=== PATIENT | female | born 1940 | race Caucasian/White ===

== ENCOUNTER 2019-10-07 16:25 | Inpatient (IN) | payer MEDICARE, BC, SELFPAY ==
[2019-10-07] VITALS (7 sets, daily range): BP systolic 98–115; BP diastolic 55–77; PULSE 54–69; RESP 14–20; TEMP 36.7–36.9; O2SAT 89–100; BMI 29.7; BMI 28.9
--- NOTE | 2019-10-07 16:38 | ECG_ITS ---
APPROVED REPORT Exam: Resting ECG HR:68 bpm ECG Measurements Heart Rate 68 AXES NH 182 P 52 QRSd 98 QRS -21 QT 446 T 108 QTc 474 <Conclusion> Normal sinus rhythm Possible Left atrial enlargement Nonspecific T wave abnormality Prolonged QT Abnormal ECG Electronically signed by : Arash Green, 10/09/2019 20:02:17
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
--- NOTE | 2019-10-07 16:50 | CT_ITS ---
PROCEDURE: CT HEAD/BRAIN WO CON CLINICAL INDICATION: altered mental status There is generalized atrophy with hypoattenuation of the periventricular white matter consistent with microangiopathic changes. COMPARISON: No exams were available for comparison TECHNIQUE: Axial images obtained. All CT scans at the facility use one or more dose reduction, viz: automated exposure control, ma/kV adjustment per patient size (including targeted exams where dose is matched to indication, i.e. head), or iterative reconstruction technique. FINDINGS: No midline shift, mass effect, intracranial hemorrhage, hydrocephalus, or extra-axial fluid collection is evident. There is generalized atrophy with hypoattenuation of the periventricular white matter consistent with microangiopathic changes. The calvarium has an unremarkable appearance. No mastoid effusion. 1.4 cm retention cyst left maxillary sinus IMPRESSION: No acute intracranial finding Dictated by: Solitario Soares MD 10/08/2019 08:18 Electronically signed by Solitario Soares MD in [place] 10/08/2019 08:18
--- NOTE | 2019-10-07 16:51 | XR_ITS ---
PROCEDURE: XR CHEST PORTABLE CLINICAL INDICATION: low O2 sat COMPARISON: CT ANGIO CHEST from 10/07/2019 FINDINGS: There is cardiomegaly without failure. There are small bilateral pleural effusions with consolidation in the left lower lobe. Patchy infiltrate is also present in the right midlung. Other findings:No acute bony findings. IMPRESSION: Cardiomegaly with left lower lobe pneumonia, small bilateral effusions and patchy infiltrate in the right midlung Dictated by: Solitario Soares MD 10/08/2019 00:33 Electronically signed by Solitario Soares MD in [place] 10/08/2019 00:33
[2019-10-07 16:52] LABS: Basophils # 0.1 K/mm3 (0-0.2); Basophils % 0.3 % (0.1-2.0); Chloride 100 mmol/L (98-107); Eosinophils # 0.4 K/mm3 (0.0-0.4); Eosinophils % 2.5 % (0.1-12.0); Hematocrit 34.1 % (37.0-47.0); Hemoglobin 10.9 g/dL (12.2-16.2); Lymphocytes # 2.1 K/mm3 (0.7-4.5); Lymphocytes % 14.1 % (10-50); Mean Corpuscular Hemoglobin 28.6 pg (27.0-31.2); Mean Corpuscular Volume 89.1 fl (81-99); Mean Platelet Volume 7.8 fl (7.4-10.4); Monocytes % 6.5 % (1.7-9.3); Neutrophils # 11.2 K/mm3 (1.8-7.8); Neutrophils % 76.5 % (37.0-80.0); Platelet Count 458 K/mm3 (142-424); Red Blood Count 3.82 M/mm3 (4.20-5.40); Red Cell Distribution Width 15.3 % (11.5-17.5); Sodium 133 mmol/L (136-145); White Blood Count 14.7 K/mm3 (4.8-10.8)
[2019-10-07 16:53] LABS: Potassium 3.7 mmoL/L (3.5-5.1)
[2019-10-07 16:55] LABS: Alanine Aminotransferase 22 U/L (12-78); Albumin Level 2.5 g/dl (3.5-5.0); Albumin/Globulin Ratio 0.7 (1.1-1.8); Alkaline Phosphatase 108 U/L (38-126); Anion Gap 14.7 mEq/L (5-15); Aspartate Amino Transferase 39 U/L (14-36); Bilirubin,Total 0.4 mg/dl (0.2-1.3); Blood Urea Nitrogen 36 mg/dl (7-17); Carbon Dioxide 22 mmol/L (22.0-30.0); Creatinine Clearance Estimated 36 mL/min (50-200); Estimated Glomerular Filt Rate 27 ml/min (>60); GFR (African American) 33 ML/MIN (>60); Globulin 3.7 g/dL (1.3-3.2); Total Protein,Serum 6.2 g/dl (6.3-8.2)
--- NOTE | 2019-10-07 16:55 | CT_ITS ---
PROCEDURE: CT ANGIO CHEST CLINCIAL INDICATION: hypoxia, r/o PE COMPARISON: No exams were available for comparison TECHNIQUE: IV Contrast: 70ML OPTIRAY 350 Axial images obtained with sagittal and coronal reformats. All CT scans at the facility use one or more dose reduction, viz: automated exposure control, ma/kV adjustment per patient size (including targeted exams where dose is matched to indication, i.e. head), or iterative reconstruction technique. FINDINGS: Exam is performed without and with contrast with CT a protocol. Moderate degree of acute bilateral pulmonary emboli noted more extensive on the left within the bifurcation of the left main pulmonary artery extending into the upper lower lobe branches. Pulmonary embolus noted in the lower lobe branches on the right. There is cardiomegaly. There is some reflux of contrast into the inferior vena cava which is slightly enlarged. No bowing of the interventricular septum. No evidence of aortic aneurysm or dissection. Patchy ground-glass density noted in both upper lobes. Consolidation is present in both lung bases posteriorly left more extensive than right there are medium bilateral pleural effusions with bibasilar atelectatic changes. There is some minimal thickening of the pericardium. IMPRESSION: 1. Bilateral pulmonary emboli. The IVC is enlarged with mild reflux of contrast into the IVC which may be seen with some mild right heart strain. 2. Moderate bilateral pleural effusions with bilateral lower lobe consolidation/volume loss 3. Cardiomegaly 4. Patchy ground-glass infiltrates in both upper lobes nonspecific and could be seen with edema, viral or atypical pneumonia among other etiologies. Dictated by: Solitario Soares MD 10/08/2019 09:24 Electronically signed by Solitario Soares MD in [place] 10/08/2019 09:24
[2019-10-07 16:56] LABS: Calcium 8.7 mg/dl (8.4-10.2); Glucose 105 mg/dl (74-100)
--- NOTE | 2019-10-07 16:58 | PC.NURSE ---
pt to rad
[2019-10-07 17:07] LABS: Troponin I 0.03 ng/ml (0.00-0.034)
[2019-10-07 17:12] LABS: NT Pro Brain Natriuretic Pep. 8210 pg/mL (0-450)
[2019-10-07 17:31] LABS: Coronavirus 19 IgG Antibody Negative (Negative); Coronavirus 19 IgM Antibody Negative (Negative)
[2019-10-07 18:18] LABS: Microscopic, Urine URINE MICROSCOPIC (MICROSCOPIC)
[2019-10-07 18:24] LABS: Appearance,Urine CLOUDY (Clear); Bilirubin,Urine Negative (Negative); Blood, Urine 2+ (Negative); Color,Urine YELLOW (Yellow); Glucose,Urine (UA) Negative (Negative); Ketones,Urine Negative (Negative); Leukocyte Esterase,Urine 2+ (Negative); Nitrate,Urine Negative (Negative); Protein,Urine 1+ (Negative); Specific Gravity, Urine 1.025 (1.005-1.030); Urobilinogen,Urine 0.2 EU/dl (0.2)
[2019-10-07 18:26] LABS: Lactic Acid 1.3 mmol/L (0.7-2.1)
--- NOTE | 2019-10-07 18:30 | PC.NURSE ---
Lab here to do COVID swab. Arabella states that this swab will take longer than usual due to there already being swabs running at this time.
[2019-10-07 18:38] LABS: Adenovirus,PCR Not Detected (NotDetected); Bordetella Pertussis Not Detected (NotDetected); Chlamydophila Pneumoniae, PCR Not Detected (NotDetected); Coronavirus 19, PCR Not Detected (NotDetected); Coronavirus 229E Not Detected (NotDetected); Coronavirus NL63 Not Detected (NotDetected); Coronavirus OC43 Not Detected (NotDetected); Coronovirus HKU1,PCR Not Detected (NotDetected); Human Metapneumovirus Not Detected (NotDetected); Influenza A, PCR Not Detected (NotDetected); Influenza AH1, 2009 Not Detected (NotDetected); Influenza AH1, PCR Not Detected (NotDetected); Influenza AH3,PCR Not Detected (NotDetected); Influenza B, PCR Not Detected (NotDetected); Mycoplasma Pneumoniae, PCR Not Detected (NotDected); Parainfluenza 1, PCR Not Detected (NotDetected); Parainfluenza 2, PCR Not Detected (NotDetected); Parainfluenza 3, PCR Not Detected (NotDetected); Parainfluenza 4, PCR Not Detected (NotDetected); Respiratory Syncytial Virus Not Detected (NotDetected); Rhinovirus/Enterovirus Not Detected (NotDetected)
[2019-10-07 19:08] LABS: Activated Partial Thrombo Time 23.6 seconds (23.6-34.0)
[2019-10-07 19:15] LABS: Bacteria,Urine 3+ /lpf; WBC,Urine 20-50 #/hpf (0-3)
--- NOTE | 2019-10-07 19:26 | PC.NURSE ---
covid test running at this time. Must be done before pt can go upstairs.
--- NOTE | 2019-10-07 20:07 | PC.NURSE ---
per day shift cefepime and levaquin will need to be given by 2nd floor nurse. vanc and heparin running at this time
--- NOTE | 2019-10-07 20:40 | PC.NURSE ---
report given to Rosalba Michaels RN nurse informed that pt would still need cefepime and levaquin after vanc is complete.
--- NOTE | 2019-10-07 20:50 | PC.NURSE ---
PT ARRIVED TO THE FLOOR VIA STRETCHER FROM ED AT 2047.
--- NOTE | 2019-10-07 22:56 | PC.NURSE ---
called tania pharm digital solutions architect, to verify heparin consult on may. she stated she had already spoken with the triage register nurse prior to admission to this unit. ordered a PTT lab draw for 2300 this evening and another PTT lab draw again at 0600 in the am.
[2019-10-07 23:38] LABS: Activated Partial Thrombo Time 86.5 seconds (23.6-34.0)
--- NOTE | 2019-10-07 23:45 | PC.NURSE ---
spoke with tania, pharm telecommunications professional, about heparin gtt. PTT draw noted at 86.5. she ordered to adjust dose from 26 ml/hr to 24 ml/hr.
[2019-10-08] VITALS (9 sets, daily range): BP systolic 90–125; BP diastolic 54–71; PULSE 56–78; RESP 16–20; TEMP 36.4–37.1; O2SAT 90–96
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
[2019-10-08 06:15] LABS: ABG HCO3 21.9 mmhg (22.0-26.0); ABG PCO2 39.5 mmhg (35.0-45.0); ABG PH 7.36 mmol/L (7.35-7.45); ABG PO2 93.3 mmhg (80-100)
[2019-10-08 06:16] LABS: ABG Base Excess -3.6 mmol/L (-2.4-2.3); ABG Oxygen Saturation 97 % (90-100); ABG TCO2 23.1 mmhg (23-27); Allen's Test ACCEPTABLE; Oxygen 2.5 LPM %; Source R RADIAL
--- NOTE | 2019-10-08 07:00 | CA_ITS ---
APPROVED REPORT Bilateral Lower Extremity Venous Study for Chemical Machine Tender: MICHAEL Indications Lower Extremity Edema: Bilateral Lower Extremity Swelling: Bilateral PE, r/o dvt Risk Factors Obesity Past History Pulmonary Embolism Vein Imaging CFV (R): compressive, spontaneous, phasic, augmentation SFJ (R): compressive, spontaneous, phasic, augmentation FEM (R): compressive, spontaneous, phasic, augmentation POP (R): compressive, spontaneous, phasic, augmentation DFV (R): Compressible PTV (R): Compressible GSV (R): compressive, spontaneous, phasic, augmentation Peroneals (R):Not Visualized GAS (R): Compressible CFV (L): Non-Compressible SFJ (L): Non-Compressible FEM (L): Compressible POP (L): Compressible PTV (L): Compressible GSV (L): Partially Compressible Peroneals (L):Not Visualized Findings No evidence of DVT in right lower leg. Acute DVT is visualized in the common femoral vein of the left lower extremity and the greater saphaneous vein of the left lower leg. Reported to attending nurse. Technically difficult study bilateral lower edema making visualization difficult. Conclusion No evidence of DVT in right lower leg. Acute DVT is visualized in the common femoral vein of the left lower extremity and the greater saphaneous vein of the left lower leg. Electronically signed by : Solitario Soares MD 10/08/2019 18:20:40
--- NOTE | 2019-10-08 07:22 | P.CONPHA_ITS ---
[facility] Pharmacy VTE Monitoring - Patient Demographics Admission date: 10/07/19 Report Date: 10/08/19 Time: :22 Allergies/Adverse Reactions: Patient Allergies acetaminophen [From Tylenol] Allergy (Verified 10/07/19 16:40) aspirin Allergy (Verified 10/07/19 16:40) Sulfa (Sulfonamide Antibiotics) Allergy (Verified 10/07/19 16:40) Height: 1.7 m Weight: 83.518 kg Patient Problems: Current Active Problems Bilateral pulmonary embolism (Acute) Respiratory failure with hypoxia (Acute) Healthcare-associated pneumonia (Acute) Congestive heart failure (Acute) - VTE Risk Labs: VTE Related Lab Results Hgb 10.9 g/dL (12.2-16.2) L 10/07/19 16:15 Hct 34.1 % (37.0-47.0) L 10/07/19 16:15 Plt Count 458 K/mm3 (142-424) H 10/07/19 16:15 APTT 86.5 seconds (23.6-34.0) H* D 10/07/19 23:13 BUN 36 mg/dl (7-17) H 10/07/19 16:15 Creatinine 1.80 mg/dl (0.52-1.04) H 10/07/19 16:15 Estimated Creat Clear 36 mL/min (50-200) 10/07/19 16:15 VTE Score: 7 Clinical Trial Participant: No - Prophylaxis VTE Prophylaxis Ordered?: Yes
--- NOTE | 2019-10-08 08:02 | HMH.PHACONS ---
- Pharmacy Consult Date: 10/08/19 Time: 08:02 Referring provider: DR. NARAYAN Reason for Consult:: VANCOMYCIN DOSING Allergies and ADEs:: Allergies Allergy/AdvReac Type Severity Reaction Status Date / Time acetaminophen [From Tylenol] Allergy Verified 10/07/19 16:40 aspirin Allergy Verified 10/07/19 16:40 Sulfa (Sulfonamide Allergy Verified 10/07/19 16:40 Antibiotics) Home Medications:: Home Medications Medication Instructions Recorded Confirmed Type Adalimumab [Humira] 40 mg SQ WEEKLY 10/07/19 10/07/19 History Amiodarone HCl 200 mg PO BID 10/07/19 10/08/19 History Baclofen 5 mg PO BID 10/07/19 10/08/19 History Cholecalciferol (Vitamin D3) 50 mcg PO DAILY 10/07/19 10/08/19 History [Vitamin D3] Docusate Sodium [Colace] 100 mg PO DAILY 10/07/19 10/08/19 History Duloxetine HCl 30 mg PO DAILY 10/07/19 10/08/19 History Gabapentin [Gabapentin 100mg Cap] 100 mg PO TID 10/07/19 10/08/19 History Ibuprofen [Ibuprofen 800mg 800 mg PO TIDP PRN 10/07/19 10/08/19 History Tablet] Methocarbamol [Robaxin 500mg Tab*] 500 mg PO QID 10/07/19 10/08/19 History Mirtazapine [Remeron 15mg tablet] 15 mg PO HS 10/07/19 10/08/19 History Pantoprazole Sodium [Protonix 40mg 40 mg PO DAILY 10/07/19 10/08/19 History tablet] Sennosides [Senna] 8.6 mg PO DAILY 10/07/19 10/08/19 History levoFLOXacin [Levaquin 500mg 500 mg PO DAILY 10/07/19 10/08/19 History tab] Height: 1.7 m Weight: 83.518 kg Laboratory Results:: Laboratory Results - last 24 hr 10/07/19 16:15: WBC 14.7 H, RBC 3.82 L, Hgb 10.9 L, Hct 34.1 L, MCV 89.1, MCH 28.6, MCHC 32.0, RDW 15.3, Plt Count 458 H, MPV 7.8, Neut % (Auto) 76.5, Lymph % (Auto) 14.1, [place] % (Auto) 6.5, Eos % (Auto) 2.5, Baso % (Auto) 0.3, Neut # (Auto) 11.2 H, Lymph # (Auto) 2.1, [place] # (Auto) 1.0, Eos # (Auto) 0.4, Baso # (Auto) 0.1 10/07/19 16:15: Sodium 133 L, Potassium 3.7, Chloride 100, Carbon Dioxide 22, Anion Gap 14.7, BUN 36 H, Creatinine 1.80 H, Estimated Creat Clear 36, Estimated GFR 27 L, Est GFR ( Amer) 33 L, Glucose 105 H, Calcium 8.7, Total Bilirubin 0.4, AST 39 H, ALT 22, Alkaline Phosphatase 108, Troponin I 0.03, Total Protein 6.2 L, Albumin 2.5 L, Globulin 3.7 H, Albumin/Globulin Ratio 0.7 L 10/07/19 16:15: NT-Pro-B Natriuret Pep 8210 H 10/07/19 16:15: SARS-CoV-2 IgG Ab (Rapid) Negative, SARS-CoV-2 IgM Ab (Rapid) Negative 10/07/19 16:15: APTT 23.6 10/07/19 18:10: Lactate 1.3 10/07/19 18:14: Urine Color Yellow, Urine Appearance Cloudy, Urine pH 6.0, Ur Specific [place] 1.025, Urine Protein 1+, Urine Glucose (UA) Negative, Urine Ketones Negative, Urine Blood 2+, Urine Nitrate Negative, Urine Bilirubin Negative, Urine Urobilinogen 0.2, Ur Leukocyte Esterase 2+ A, Urine RBC None, Urine WBC 20-50, Ur Squamous Epith Cells None, Urine Bacteria 3+ 10/07/19 18:36: Chlamy pneumoniae PCR Not detected, Adenovirus (PCR) Not detected, B. pertussis DNA (PCR) Not detected, Coronavirus OC43 (PCR) Not detected, Coronavirus HKU1 (PCR) Not detected, Coronavirus 229E (PCR) Not detected, COVID-19 PCR Not detected, Coronavirus NL63 (PCR) Not detected, Human Metapneumovir PCR Not detected, Influenza A (H1) PCR Not detected, Influ A (H1N1/09) PCR Not detected, Influenza A (H3) PCR Not detected, Influenza Type A (PCR) Not detected, Influenza Type B (PCR) Not detected, M. pneumoniae (PCR) Not detected, Parainfluenza 1 (PCR) Not detected, Parainfluenza 2 (PCR) Not detected, Parainfluenza 3 (PCR) Not detected, Parainfluenza 4 (PCR) Not detected, RSV (PCR) Not detected, Entero/Rhino (PCR) Not detected 10/07/19 20:15: Specimen Source R radial, O2 % 2.5 lpm, ABG pH 7.36, ABG pCO2 39.5, ABG pO2 93.3, ABG HCO3 21.9 L, ABG Total CO2 23.1, ABG O2 Saturation 97, ABG Base Excess -3.6 L, Solitario Test Acceptable 10/07/19 23:13: APTT 86.5 H* D Medical History: Denies:: Cancer, Diabetes Mellitus Type 1, Diabetes Mellitus Type 2, MRSA Assessment and Plan - Assessment and plan all Dx Assessment and Plan for all pro
[2019-10-08 08:11] LABS: Activated Partial Thrombo Time 59.9 seconds (23.6-34.0)
--- NOTE | 2019-10-08 08:12 | PC.NURSE ---
per Lesley, pharmD, increase heparin drip to 25ml/hr
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
--- NOTE | 2019-10-08 08:31 | CA_ITS ---
APPROVED REPORT EXAM: Comprehensive 2D, Doppler, and color-flow Echocardiogram Business Performance Specialist: Cyndi Breen RDCS Ht: 5 ft 6 in Wt: 184lbs BSA: 1.93 BP: 90/59 mmHg Indications: PE,CARDIOMEGALY,EX SMOKER 2D Dimensions LVOT 1.99 cm (M/F) 1.5-2.5 M-Mode Dimensions RVDd 2.41 cm (0.9-2.6) LVDd 5.51 cm (3.5-5.7) LVDs 4.26 cm (3.5-5.7) IVSd 0.97 cm (0.6-1.1) PWd 0.72 cm (0.6-1.1) EF (Teich) 45.10% FS 22.70% EDV (Teich) 148.00 mL ESV (Teich) 81.30 mL LV Diastology E/A Ratio 0.87 Mitral Valve MV A Velocity 61.00 (40-130 cm/s) Left Ventricle Left atrium is mildly enlarged, left ventricle is normal size, mild concentric left ventricular hypertrophy, visually estimated ejection fraction 55% with no regional wall motion abnormality. Grade 1 diastolic dysfunction seen without tissue Doppler evidence of raise left atrial pressure. Right Ventricle Right atrium and right ventricle moderately enlarged, contractility of the right ventricle is normal. Atria There is bowing of the interatrial septum towards left atrium, consistent with increased right atrial pressure. Aortic Valve Aortic valve is minimally thickened and fibrosed, there is no aortic stenosis, there is mild aortic insufficiency. Mitral Valve Mitral valve leaflets are minimally thickened, there is no mitral stenosis, there is mild mitral regurgitation. Tricuspid Valve Tricuspid valve is minimally thickened, there is moderate to severe tricuspid regurgitation, calculated right ventricular systolic pressure is 73 mmHg. Pulmonic Valve Pulmonic valve is poorly visualized. Great Vessels Aortic root is normal size. Pericardium No significant pericardial effusion noted. Conclusion 1. Biatrial enlargement, normal left ventricular size, mild concentric left ventricular hypertrophy, visually estimated ejection fraction 55% with no regional wall motion abnormality, grade 1 diastolic dysfunction seen without tissue Doppler evidence of raise left atrial pressure. 2. Moderately enlarged right ventricle with normal contractility. 3. Moderately enlarged right atrium with evidence of raised right atrial pressure. 4. Mild mitral mild aortic and moderate to severe tricuspid regurgitation, calculated right ventricular systolic pressure 73 mmHg. 5. No significant pericardial effusion noted. Electronically signed by : Alexey Ugarte, 10/08/2019 13:16:12
--- NOTE | 2019-10-08 09:54 | HMH.PHAINT ---
MEDICATION RECONCILIATION COMPLETED USING MAR FROM [facility].
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
--- NOTE | 2019-10-08 10:17 | HMH.PHAHEP ---
[facility] Pharmacy Heparin Dosing - Demographic Data Admission date:: 10/07/19 Date: 10/08/19 Time: 10:18 Allergies/Adverse Reactions: Allergies Allergy/AdvReac Type Severity Reaction Status Date / Time acetaminophen [From Tylenol] Allergy Verified 10/07/19 16:40 aspirin Allergy Verified 10/07/19 16:40 Sulfa (Sulfonamide Allergy Verified 10/07/19 16:40 Antibiotics) Height: 1.7 m Weight: 83.5 kg - Indication Medication therapy:: Heparin Current Indications:: PE Patient Problems: Current Active Problems Bilateral pulmonary embolism (Acute) Respiratory failure with hypoxia (Acute) Healthcare-associated pneumonia (Acute) Congestive heart failure (Acute) CVA?: No Bleeding problem?: No Kidney disease?: No IN?: No Desired PTT range:: 60-80 seconds - Labs Anticoagulation Lab Results:: 10/07/19 16:15 Hgb 10.9 L Hct 34.1 L Plt Count 458 H - Monitoring Dose Monitor 1 Date: 10/07/19 Time: 16:15 PTT Result:: 23.6 Infusion Rate:: 26 ML/HR (1300 UNITS/HR) Comment:: BASELINE PTT HKH=[id number] 5000 UNIT BOLUS GIVEN Dose Monitor 2 Date: 10/07/19 Time: 10:21 PTT Result:: 86.5 Infusion Rate:: 24 ML/HR Dose Monitor 3 Date: 10/08/19 Time: 10:22 PTT Result:: 59.9 Infusion Rate:: 25 ML/HR - Core Measures Is INR > or = 2 at discharge?: No Most Recent Labs:: Laboratory Results - last 24 hr 10/07/19 16:15: WBC 14.7 H, RBC 3.82 L, Hgb 10.9 L, Hct 34.1 L, MCV 89.1, MCH 28.6, MCHC 32.0, RDW 15.3, Plt Count 458 H, MPV 7.8, Neut % (Auto) 76.5, Lymph % (Auto) 14.1, [place] % (Auto) 6.5, Eos % (Auto) 2.5, Baso % (Auto) 0.3, Neut # (Auto) 11.2 H, Lymph # (Auto) 2.1, [place] # (Auto) 1.0, Eos # (Auto) 0.4, Baso # (Auto) 0.1 10/07/19 16:15: Sodium 133 L, Potassium 3.7, Chloride 100, Carbon Dioxide 22, Anion Gap 14.7, BUN 36 H, Creatinine 1.80 H, Estimated Creat Clear 36, Estimated GFR 27 L, Est GFR ( Amer) 33 L, Glucose 105 H, Calcium 8.7, Total Bilirubin 0.4, AST 39 H, ALT 22, Alkaline Phosphatase 108, Troponin I 0.03, Total Protein 6.2 L, Albumin 2.5 L, Globulin 3.7 H, Albumin/Globulin Ratio 0.7 L 10/07/19 16:15: NT-Pro-B Natriuret Pep 8210 H 10/07/19 16:15: SARS-CoV-2 IgG Ab (Rapid) Negative, SARS-CoV-2 IgM Ab (Rapid) Negative 10/07/19 16:15: APTT 23.6 10/07/19 18:10: Lactate 1.3 10/07/19 18:14: Urine Color Yellow, Urine Appearance Cloudy, Urine pH 6.0, Ur Specific [place] 1.025, Urine Protein 1+, Urine Glucose (UA) Negative, Urine Ketones Negative, Urine Blood 2+, Urine Nitrate Negative, Urine Bilirubin Negative, Urine Urobilinogen 0.2, Ur Leukocyte Esterase 2+ A, Urine RBC None, Urine WBC 20-50, Ur Squamous Epith Cells None, Urine Bacteria 3+ 10/07/19 18:36: Chlamy pneumoniae PCR Not detected, Adenovirus (PCR) Not detected, B. pertussis DNA (PCR) Not detected, Coronavirus OC43 (PCR) Not detected, Coronavirus HKU1 (PCR) Not detected, Coronavirus 229E (PCR) Not detected, COVID-19 PCR Not detected, Coronavirus NL63 (PCR) Not detected, Human Metapneumovir PCR Not detected, Influenza A (H1) PCR Not detected, Influ A (H1N1/09) PCR Not detected, Influenza A (H3) PCR Not detected, Influenza Type A (PCR) Not detected, Influenza Type B (PCR) Not detected, M. pneumoniae (PCR) Not detected, Parainfluenza 1 (PCR) Not detected, Parainfluenza 2 (PCR) Not detected, Parainfluenza 3 (PCR) Not detected, Parainfluenza 4 (PCR) Not detected, RSV (PCR) Not detected, Entero/Rhino (PCR) Not detected 10/07/19 20:15: Specimen Source R radial, O2 % 2.5 lpm, ABG pH 7.36, ABG pCO2 39.5, ABG pO2 93.3, ABG HCO3 21.9 L, ABG Total CO2 23.1, ABG O2 Saturation 97, ABG Base Excess -3.6 L, Solitario Test Acceptable 10/07/19 23:13: APTT 86.5 H* D 10/08/19 07:45: APTT 59.9 H* D If INR was < than 2.0 why was therapy stopped?: CHANGED TO LOVENOX Were Heparin and Warfarin started on the same day?: No If not, why?: HEPARIN DC'D, CHANGED TO LOVENOX
--- NOTE | 2019-10-08 10:23 | PC.NURSE ---
HEPARIN GTT STOPPED AT 1000 PER ORDER. SUBQ LOVENOX ADMIN PER ORDER.
--- NOTE | 2019-10-08 10:29 | P.CONPHA_ITS ---
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) Depression (Chronic) GERD (gastroesophageal reflux disease) (Chronic) UTI (urinary tract infection) (Acute) - VTE Risk Labs: VTE Related Lab Results Hgb 10.9 g/dL (12.2-16.2) L 10/07/19 16:15 Hct 34.1 % (37.0-47.0) L 10/07/19 16:15 Plt Count 458 K/mm3 (142-424) H 10/07/19 16:15 APTT 59.9 seconds (23.6-34.0) H* D 10/08/19 07:45 BUN 36 mg/dl (7-17) H 10/07/19 16:15 Creatinine 1.80 mg/dl (0.52-1.04) H 10/07/19 16:15 Estimated Creat Clear 36 mL/min (50-200) 10/07/19 16:15 VTE Score: 7 VTE Risk Level: Moderate Risk Clinical Trial Participant: No - Prophylaxis VTE Prophylaxis Ordered?: Yes Pharmacologic Type: Enoxaparin (HEPARIN OVERNIGHT, THEN CHANGED TO LOVENOX) - VTE Diagnosis Confirmed Treatment or plan recommended: Add Warfarin Warfarin counseling provided if indicated?: No (PATIENT IS GOING TO [facility]) Bridge therapy started inpt?: Yes (LOVENOX AND WARFARIN INPATIENT AND CONTINUED AT DISCHARGE TO [facility])
--- NOTE | 2019-10-08 15:01 | PC.NURSE ---
DRESSING TO [facility] CHANGED. MEPILEX APPLIED. WOUND BED IS BLACK, RED WITH MINIMAL SEROUS DRAINAGE
--- NOTE | 2019-10-08 18:11 | PC.NURSE ---
PATIENT LYING IN BED EATING DINNER. C/O MILD NAUSEA HAD SOME RELIEF WITH ZOFRAN. NO VOMITING. SAFETY MEASURES IN PLACE NO ISSUES AT THIS TIME.
--- NOTE | 2019-10-08 18:35 | PC.NURSE ---
RT administered 3% hypertonic to try to induce a sputum production, pt still could not cough up any sputum at this time. Cup left at bedside.
--- NOTE | 2019-10-08 20:14 | PC.NURSE ---
Pt's room air sat = 85% at rest.
[2019-10-09] VITALS: BP 96/52; PULSE 61; RESP 18; TEMP 36.5; O2SAT 95
[2019-10-09 03:52] VITALS: BP 99/52; PULSE 62; RESP 16; TEMP 36.1; O2SAT 97
[2019-10-09 04:04] VITALS: BMI 28.7
[2019-10-09 07:26] LABS: Chloride 106 mmol/L (98-107)
[2019-10-09 07:27] LABS: Potassium 3.6 mmoL/L (3.5-5.1); Sodium 136 mmol/L (136-145)
[2019-10-09 07:28] LABS: Basophils % 0.3 % (0.1-2.0); Eosinophils # 0.5 K/mm3 (0.0-0.4); Hematocrit 34.4 % (37.0-47.0); Hemoglobin 10.9 g/dL (12.2-16.2); Lymphocytes # 1.3 K/mm3 (0.7-4.5); Lymphocytes % 10.9 % (10-50); Mean Corpuscular HGB Conc 31.7 g/dL (31.8-35.4); Mean Corpuscular Hemoglobin 28.2 pg (27.0-31.2); Mean Corpuscular Volume 88.9 fl (81-99); Mean Platelet Volume 8.7 fl (7.4-10.4); Monocytes % 7.7 % (1.7-9.3); Neutrophils # 9.5 K/mm3 (1.8-7.8); Neutrophils % 77.1 % (37.0-80.0); Platelet Count 465 K/mm3 (142-424); Red Blood Count 3.86 M/mm3 (4.20-5.40); Red Cell Distribution Width 15.3 % (11.5-17.5); White Blood Count 12.4 K/mm3 (4.8-10.8)
[2019-10-09 07:29] LABS: Alanine Aminotransferase 14 U/L (12-78); Alkaline Phosphatase 91 U/L (38-126); Anion Gap 8.6 mEq/L (5-15); Aspartate Amino Transferase 29 U/L (14-36); Bilirubin,Total 0.4 mg/dl (0.2-1.3); Blood Urea Nitrogen 26 mg/dl (7-17); Carbon Dioxide 25 mmol/L (22.0-30.0); Creatinine Clearance Estimated 62 mL/min (50-200); Estimated Glomerular Filt Rate 61 ml/min (>60); GFR (African American) 73 ML/MIN (>60)
[2019-10-09 07:30] LABS: Albumin Level 2.4 g/dl (3.5-5.0); Albumin/Globulin Ratio 0.7 (1.1-1.8); Calcium 8.8 mg/dl (8.4-10.2); Globulin 3.6 g/dL (1.3-3.2); Glucose 96 mg/dl (74-100); Magnesium 2.1 mg/dl (1.6-2.3)
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
[2019-10-09 08:00] VITALS: BP 115/64; PULSE 65; RESP 19; TEMP 36.8; O2SAT 95
--- NOTE | 2019-10-09 09:42 | PC.NURSE ---
REPORT [facility]
--- NOTE | 2019-10-09 10:37 | PC.NURSE ---
[facility] NOTIFIED OF NEED FOR TRANSPORT AT [id number]
== END 2019-10-09 10:51 | DRG 175 ==
LOC: ER 18:50 → 2ND 19:39
PROVIDERS: Internal Medicine Adolescent Medicine; Admitting Provider Emergency Medicine; Emergency Provider Emergency Medicine; PCP Internal Medicine Adolescent Medicine; Visit Provider Internal Medicine Adolescent Medicine
DX: J18.9 Pneumonia, unspecified organism; J96.01 Acute respiratory failure with hypoxia; N39.0 Urinary tract infection, site not specified; G82.21 Paraplegia, complete; I25.2 Old myocardial infarction; I26.94 Multiple subsegmental thrombotic pulmonary emboli without acute cor pulmonale; Z79.899 Other long term (current) drug therapy; Z88.2 Allergy status to sulfonamides; Z88.8 Allergy status to other drugs, medicaments and biological substances; K21.9 Gastro-esophageal reflux disease without esophagitis; Z91.5 Personal history of self-harm; Z87.828 Personal history of other (healed) physical injury and trauma
CPT/HCPCS: 36415; 70450; 71045; 71275; 80053; 81001; 82803; 83605; 83735; 83880; 84484; 85025; 85730; 86328; 87040; 87086; 87088; 87186; 87581; 87633; 87798; 93005; 93306; 93970; 94761; 96365; 96367; 99285; J1956; J2405; J3370